=== PATIENT | female | born 2000 | race Caucasian/White ===

== ENCOUNTER 2022-03-05 09:36 | Outpatient (CLI) | payer OTHER, SELFPAY ==
[2022-03-05 16:18] LABS: Chloride* 106 mmol/L (96-114); Potassium* 4.2 mmol/L (3.6-5.1); Sodium* 137 mmol/L (135-149)
[2022-03-05 16:21] LABS: Blood Urea Nitrogen* 13 mg/dL (5-24); Calcium* 9.3 mg/dL (8.4-10.6); Carbon Dioxide* 22 mmol/L (20-32); Creatinine* 0.7 mg/dL (0.5-1.5); Estimated Glomerular Filt Rate 126 ml/min; Glucose* 100 mg/dL (60-115)
[2022-03-05 19:18] LABS: Free T4 Free Thyroxine* 0.88 ng/dL (0.70-1.85)
[2022-03-07 23:13] LABS: Immunoglobulin A 112 mg/dL (68-408)
[2022-03-08 08:50] LABS: Tissue Transglutaminase IgA <2 U/mL (0-3)
== END 2022-03-05 09:37 | disposition home or self-care (01) ==
PROVIDERS: PCP Nurse Practitioner Family; Visit Provider Nurse Practitioner Family
DX: Z00.00 Encounter for general adult medical examination without abnormal findings (principal); R00.2 Palpitations; R19.7 Diarrhea, unspecified; F41.9 Anxiety disorder, unspecified
CPT/HCPCS: 80048; 82784; 84439; 84443; 86364

== ENCOUNTER 2022-03-08 13:41 | Outpatient (CLI) | payer OTHER, SELFPAY | END 2022-03-08 13:42 | disposition home or self-care (01) | PROVIDERS: PCP Nurse Practitioner Family; Visit Provider Nurse Practitioner Family | DX: R00.2 Palpitations (principal) | CPT/HCPCS: 93225; 93226 ==